=== PATIENT | female | born 1980 | race Caucasian/White ===

== ENCOUNTER 2017-07-25 08:18 | Day surgery (SDC) | payer OTHER ==
[~2017-07-25 08:18] MED LIST: Lactated Ringers 1,000 ML IV SCH; Lidocaine 1%/Sod Bicarbonate in NS 8.4% 1 ML Syringe IV PRN; Sodium Chloride 0.9% 10 ML Syringe FLUSH PRN
--- NOTE | 2017-07-25 09:09 | PCM.PREANE ---
Preanesthetic Assessment - Anesthesia/Transfusion/Family Hx Anesthesia History: Prior Anesthesia Without Reaction Family History of Anesthesia Reaction: No Transfusion History: No Prior Transfusion(s) - Review of Systems General: No Symptoms Pulmonary: No Symptoms Cardiovascular: No Symptoms Gastrointestinal: Abdominal Pain Neurological: No Symptoms Other: Reports: None - Physical Assessment NPO Status Date: 07/24/17 NPO Status Time: 21:00 Pulse: 69 O2 Sat by Pulse Oximetry: 100 Respiratory Rate: 16 Blood Pressure: 118/70 Temperature: 36.6 C Vital Signs: Last Vital Signs Temp 36.6 C 07/25/17 08:30 Pulse 69 07/25/17 08:30 Resp 16 07/25/17 08:30 BP 118/70 07/25/17 08:30 Pulse Ox 100 07/25/17 08:30 Height: 1.65 m Weight: 107.501 kg ASA Class: 2 Mental Status: Alert & Oriented x3 Airway Class: Mallampati = 1 Dentition: Reports: Normal Dentition Thyro-Mental Finger Breadths: 3 Mouth Opening Finger Breadths: 3 ROM/Head Extension: Full Lungs: Clear to Auscultation, Normal Respiratory Effort Cardiovascular: Regular Rate, Regular Rhythm - Lab Values: Laboratory Last Values Urine HCG, Qual Negative (NEGATIVE) 07/25/17 08:27 - Allergies Allergies/Adverse Reactions: Allergies Allergy/AdvReac Type Severity Reaction Status Date / Time citalopram [From Celexa] Allergy Hives Verified 07/24/17 13:26 - Anesthesia Plan Pre-Op Medication Ordered: None - Acknowledgements Anesthesia Type Planned: General Anesthesia Pt an Appropriate Candidate for the Planned Anesthesia: Yes Alternatives and Risks of Anesthesia Discussed w Pt/Guardian: Yes Pt/Guardian Understands and Agrees with Anesthesia Plan: Yes PreAnesthesia Questionnaire Cardiovascular History: Reports: None Respiratory History: Reports: None Gastrointestinal History: Reports: GERD Genitourinary History: Reports: None 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: , Other (See Below) Other OB/BYN History: pelvic pain, menorrhagia Musculoskeletal History: Reports: None Neurological History: Reports: None Psychiatric History: Reports: Depression Endocrine/Metabolic History: Reports: Obesity/BMI 30+ Hematologic History: Reports: None Immunologic History: Reports: None Oncologic (Cancer) History: Reports: None Dermatologic History: Reports: None - Past Surgical History Head Surgeries/Procedures: Reports: None HEENT Surgical History: Reports: Tonsillectomy Cardiovascular Surgical History: Reports: None Respiratory Surgical History: Reports: None GI Surgical History: Reports: None Female Surgical History: Reports: Breast Reduction, Section, Tubal Ligation Male Surgical History: Reports: None Endocrine Surgical History: Reports: None Neurological Surgical History: Reports: None Musculoskeletal Surgical History: Reports: None Oncologic Surgical History: Reports: None Dermatological Surgical History: Reports: None - SUBSTANCE USE Smoking Status *Q: Current Every Day Smoker Tobacco Use Within Last Twelve Months: Cigarettes Second Hand Smoke Exposure: Yes Days Per Week of Alcohol Use: 0 Number of Drinks Per Day: 0 Total Drinks Per Week: 0 Recreational Drug Use History: No - HOME MEDS Home Medications: Home Meds . [No Known Home Meds] 07/24/17 [History] - CURRENT (IN HOUSE) MEDS Current Meds: Current Medications Lactated Ringer's (Ringers, Lactated) 1,000 mls @ 125 mls/hr IV ASDIRECTED SHEYLA Stop: 07/25/17 23:00 Last Admin: 07/25/17 08:40 Dose: 125 mls/hr Lidocaine/Sodium Bicarbonate (Buffered Lidocaine 1% In Ns 8.4%) 0.25 ml IV ONETIME PRN PRN Reason: Prior to IV Start Stop: 07/25/17 18:00 Last Admin: 07/25/17 08:40 Dose: 0.25 ml Sodium Chloride (Saline Flush) 10 ml FLUSH ASDIRECTED PRN PRN Reason: Keep Vein Open Stop: 07/25/17 18:00
[2017-07-25] MEDS ORDERED: Propofol 200 MG/20 ML SDV ONE ×2 (10:01→10:02)
[2017-07-25] MEDS ORDERED: Lactated Ringers 1,000 ML ONE (10:02)
[2017-07-25] MEDS ORDERED: Ondansetron 4 MG/2 ML SDV ONE (10:02)
[2017-07-25] MEDS ORDERED: Midazolam 1 MG/ML 2 ML SDV ONE (10:02)
[2017-07-25] MEDS ORDERED: fentaNYL 250 MCG/5 ML SDV ONE (10:02)
[2017-07-25] MEDS ORDERED: Lidocaine 1% 4 ML ONE (10:03)
[2017-07-25] MEDS ORDERED: Dexamethasone 4 MG/ML 5 ML MDV ONE (10:04)
[2017-07-25] MEDS ORDERED: Rocuronium 50 MG/5 ML Vial ONE (10:33)
[2017-07-25] MEDS ORDERED: Ondansetron 4 MG/2 ML SDV IVPUSH PRN (10:48)
[2017-07-25] MEDS ORDERED: HYDROmorphone 0.5 MG/0.5 ML Syringe IVPUSH PRN (10:48)
[2017-07-25] MEDS ORDERED: fentaNYL 100 MCG/2 ML SDV IVPUSH PRN (10:48)
[2017-07-25] MEDS ORDERED: Neostigmine Methylsulfate 1 MG/ML 5 ML Syringe ONE (11:13)
--- NOTE | 2017-07-25 11:13 | PCM.OPNOTE ---
- General Post-Op/Procedure Note Date of Surgery/Procedure: 07/25/17 Operative Procedure(s): Hysteroscopy, dilatation and curettage, NovaSure endometrial ablation Findings: Overall normal-appearing uterine cavity with thin endometrial lining, ostia present bilaterally and normal in appearance. Normal-appearing cervix. Pre Op Diagnosis: Female pelvic pain, menorrhagia, irregular menstrual cycle. Post-Op Diagnosis: Same, status post NovaSure endometrial ablation Anesthesia Technique: General ET Tube Primary Surgeon: Daniel Reyna Anesthesia Provider: Janette Oakes Pathology: Endometrial curettings Fluid Replacement, Intraop: 1,000 (Lactated Ringer's) Output, Urine Amount: 0 (Voided prior to procedure) EBL in mLs: 5 Condition: Good Free Text/Narrative:: Procedure time: 20 minutes Procedure in detail: The patient was seen in the preoperative holding area and reviewed the risks, benefits and alternatives of the procedure including bleeding, infection, failure and damage to surrounding organs. Consents were reviewed prior to the operation. She was taken back to the OR where she was given general anesthesia with an endotracheal tube that was placed without difficulty. She was placed in the dorsal lithotomy position using yellowfin stirrups and prepped and draped in the normal sterile fashion. A sterile speculum was placed in the vagina and a single toothed tenaculum was used to grasp the anterior lip of the cervix. The uterus was anteverted and the fundus was sounded to 9 cm. Cervical length was noted to be 3 cm. The cervix was dilated to 15 Clarence dilator. The hysteroscope was passed and the endometrial cavity visualized and found to be normal in configuration with thin endometrial tissue. A sharp curette was used to curettage the endometrial lining. The endometrial lining was sent for pathology. The NovaSure device was then inserted and the width of the uterine cavity was measured to be 3.5 cm. Cavity assessment was satisfactory and power was applied for 68 seconds. The NovaSure instrument was then removed. The hysteroscope was then reinserted and global endometrial ablation was noted. All instruments were then removed from the vagina and good hemostasis was noted at tenaculum sites after use of silver nitrate stick. The patient tolerated the procedure well. The patient was awoken and taken to the PACU. She will be discharged home once she was ambulating, voiding, tolerating food and her pain was under control. She will follow up in the clinic in 2 weeks or earlier as needed for any problems that may arise.
[2017-07-25] MEDS ORDERED: Ketorolac 30 MG/ML SDV ONE (11:15)
--- NOTE | 2017-07-25 11:20 | PCM.POSTAN ---
POST ANESTHESIA ASSESSMENT - MENTAL STATUS Mental Status: Alert, Oriented - VITAL SIGNS Pulse Rate: 78 SaO2: 100 Resp Rate: 11 Blood Pressure: 123/79 Temperature: 36.6 C - RESPIRATORY Respiratory Status: Respiratory Rate WNL, Airway Patent, O2 Saturation Stable, Supplemental Oxygen - CARDIOVASCULAR CV Status: Pulse Rate WNL, Blood Pressure Stable - GASTROINTESTINAL GI Status: No Symptoms - PAIN Pain Score: 0 - POST OP HYDRATION Hydration Status: Adequate & Stable
== END 2017-07-25 12:30 | disposition home or self-care (01) ==
LOC: JD.SDS 08:18
PROVIDERS: ATTEND Obstetrics & Gynecology
DX: N92.0 Excessive and frequent menstruation with regular cycle (principal); N92.6 Irregular menstruation, unspecified; K21.9 Gastro-esophageal reflux disease without esophagitis; F17.210 Nicotine dependence, cigarettes, uncomplicated; E66.9 Obesity, unspecified; F32.9 Major depressive disorder, single episode, unspecified; Z88.8 Allergy status to other drugs, medicaments and biological substances; Z90.89 Acquired absence of other organs; Z98.51 Tubal ligation status; Z68.41 Body mass index [BMI] 40.0-44.9, adult
CPT/HCPCS: 58563; 81025; J1100; J1885; J2250; J2405; J2710; J3010; J7120; 00952; J2001; J2704